=== PATIENT | female | born 1990 | race Caucasian/White ===

== ENCOUNTER 2024-01-13 05:42 | Inpatient (IN) ==
[2024-01-13] MEDS ORDERED: Prochlorperazine 5 mg/ml 2 ml VIAL (10 mg) IV PRN (06:56)
[2024-01-13] MEDS ORDERED: Lactated Ringers 1000 ml BAG 1,000 ML IV ONE (06:56)
[2024-01-13] MEDS: Ondansetron 4 mg VIAL 2 MG/ML 2 ml VIAL IV PRN (07:32)
[2024-01-13] MEDS: Buffered Lidocaine 1% SYRIN 1 ml INTRADERM ONE (07:34)
[2024-01-13 07:48] LABS: ABS Lymphocytes 1.9 10^3/uL (1.0-4.8); ABS Monocytes 0.5 10^3/uL (0.0-0.9); ABS Neutrophils 6.8 10^3/uL (1.5-7.6); ABS Nucleated RBC 0.01 10^3/ul; Eosinophil % 0.3 %; Hematocrit 36.9 % (35-45); Hemoglobin 12.7 g/dL (11.5-14.3); Mean Corpuscular Hemoglobin 31.4 pg (27-33); Mean Corpuscular Hgb Conc 34.3 g/dL (31-36); Mean Corpuscular Volume 91.6 fL (80-97); Mean Platelet Volume 9.6 fL (7.5-11.2); Nucleated Red Blood Cells % 0.1 %/100WBC (0.0-0.8); Platelet Count 151 10^3/uL (150-450); Red Blood Count 4.03 10^6/uL (3.63-4.92); Red Cell Distribution Width 16.5 % (12-17); White Blood Count 9.2 10^3/uL (3.8-11.8)
[2024-01-13 08:09] LABS: Urine Benzodiazepine Screen None Detected (None Detect); Urine Opiates Screen None Detected (None Detect)
[2024-01-13 08:18] LABS: Activated Partial Thrombo Time 27.2 seconds (26.0-38.0); INR 0.97 (0.83-1.13)
[2024-01-13 08:26] LABS: Albumin 3.6 g/dL (3.2-5.2); Albumin/Globulin Ratio 1.4 (1-3); Calcium 8.8 mg/dL (8.6-10.3); Creatinine, Serum 0.47 mg/dL (0.51-0.95); Globulin 2.6 g/dL (2-4); Potassium 3.8 mmol/L (3.5-5.0); Total Bilirubin 0.3 mg/dL (0.2-1.0); Total Protein 6.2 g/dL (6.4-8.9)
[2024-01-13] MEDS ORDERED: OBEPIDURAL (200 ML) 200 ML EPIDURAL ONE (16:49)
[2024-01-13] MEDS ORDERED: Lidocaine 1.5% EPI 1:200,000 30 ML SDV INJ ONE (16:50)
[2024-01-13] MEDS ORDERED: Phenylephrine 40 mcg/mL 10mL (400mcg) SYRINGE IV PUSH PRN ×2 (17:14)
[2024-01-13] MEDS ORDERED: Sodium Citrate/Citric Acid LIQ 15 ML UDC PO PRN (17:14)
[2024-01-13] MEDS: OBEPIDURAL (200 ML) 200 ML EPIDURAL SCH (17:15)
[2024-01-13] MEDS ORDERED: Lactated Ringers 1000 ml BAG 1,000 ML IV SCH (18:00)
[2024-01-13] MEDS: Lactated Ringers 1000 ml BAG 1,000 ML IV ONE (18:19)
[2024-01-13 19:03] LABS: Urine Appearance Clear; Urine Bilirubin Negative (Negative); Urine Blood Negative (Negative); Urine Color Colorless; Urine Glucose Negative (Negative); Urine Ketones 1+ (Negative); Urine Nitrite Negative (Negative); Urine Protein Negative (Negative); Urine Specific Gravity 1.005 (1.002-1.030); Urine Urobilinogen Negative (Negative); Urine pH 6.5 (5.0-8.0)
[2024-01-13] MEDS: Oxytocin in LR 20,000 MILLI.UNIT/1,000 ML BAG IV SCH (19:35)
[2024-01-14] MEDS: Lactated Ringers 1000 ml BAG 1,000 ML IV SCH (00:10)
[2024-01-14] MEDS: Lidocaine 1% VIAL 10 MG/ML 30 ML VIAL INJ PRN (00:50)
[2024-01-14] MEDS: Dibucaine 1% OINT 28.35 GM TUBE PR PRN (01:53)
[2024-01-14] MEDS: Witch Hazel PAD JAR TOPICAL PRN (01:53)
[2024-01-14] MEDS ORDERED: Lactated Ringers 1000 ml BAG 1,000 ML IV SCH (02:00)
[2024-01-14] MEDS: Oxytocin in LR 20,000 MILLI.UNIT/1,000 ML BAG IV SCH (02:28)
[2024-01-14] MEDS: Enoxaparin 40 MG/0.4 ML SYR SUBCUT SCH (06:52)
[2024-01-15 07:31] LABS: ABS Eosinophils 0.1 10^3/uL (0.0-0.5); ABS Lymphocytes 2.2 10^3/uL (1.0-4.8); ABS Monocytes 0.4 10^3/uL (0.0-0.9); ABS Neutrophils 6.7 10^3/uL (1.5-7.6); ABS Nucleated RBC 0.01 10^3/ul; Hematocrit 29.6 % (35-45); Hemoglobin 10.4 g/dL (11.5-14.3); Lymphocyte % 22.9 %; Mean Corpuscular Hemoglobin 32.5 pg (27-33); Mean Corpuscular Hgb Conc 35.2 g/dL (31-36); Mean Corpuscular Volume 92.4 fL (80-97); Mean Platelet Volume 8.7 fL (7.5-11.2); Nucleated Red Blood Cells % 0.1 %/100WBC (0.0-0.8); Platelet Count 116 10^3/uL (150-450); Red Blood Count 3.21 10^6/uL (3.63-4.92); Red Cell Distribution Width 16.4 % (12-17); White Blood Count 9.4 10^3/uL (3.8-11.8)
[2024-01-15] MEDS: RHO D Immune Globulin (HUMAN) 300 MCG = 1,500 I.U. INJ IM PRN (09:28)
[2024-01-16 08:08] VITALS: BP 114/66
== END 2024-01-16 15:00 | disposition home or self-care (01) | DRG 560 ==
LOC: MCHOBOUT 05:42 → MCHOB 06:49
PROVIDERS: ADMIT Obstetrics & Gynecology; ATTEND Midwife